=== PATIENT | male | born 1945 | race Caucasian/White ===

== ENCOUNTER 2019-03-16 18:00 | Inpatient (IN) | payer OTHER ==
[~2019-03-16] VITALS: Ht 170.2 cm; Wt 88.5 kg
[2019-03-16 18:17] VITALS: BP 144/93
--- NOTE | 2019-03-16 18:20 | NUR ---
PT TO WAIT IN ER LOBBY. VSS. [id number]
--- NOTE | 2019-03-16 21:35 | NUR ---
PT AMBULATED TO BED 03. RIGHT FOOT BANDAGED. PT NOTED TO BE LIMPING.
--- NOTE | 2019-03-16 22:01 | NUR ---
73 Y/O MALE BIB SELF C/O R FOOT INFECTION. WAS SEEN YESTERDAY, ADMITTED, AND WAS GIVEN IV ANTIBIOTICS. LEFT AMA. PMH- DENIES
[2019-03-16] MEDS ORDERED: cefTRIAXone 1,000 MG VIAL ONE (22:20)
[2019-03-16] MEDS ORDERED: MORPHINE SULFATE 2 MG/ML SYR IVP PRN (22:25)
[2019-03-16] MEDS ORDERED: FAMOTIDINE 20 MG/2 ML VIAL IV PRN (22:25)
[2019-03-16] MEDS ORDERED: HYDROcodone/APAP 7.5/325 MG 1 TAB PO PRN (22:25)
[2019-03-16] MEDS ORDERED: DOCUSATE SODIUM 100 MG GELCAP PO PRN (22:25)
[2019-03-16] MEDS ORDERED: LORazepam 2 MG/ML VIAL IM/IVP PRN (22:25)
[2019-03-16] MEDS ORDERED: ONDANSETRON 4 MG/2 ML VIAL IM/IVP PRN (22:25)
[2019-03-16] MEDS ORDERED: GLUCAGON 1 MG VIAL IVP PRN (22:55)
[2019-03-16] MEDS ORDERED: DEXTROSE 50% 50 ML SYR IVP PRN (22:55)
--- NOTE | 2019-03-16 23:20 | NUR ---
Patient will be admitted to care of . Admited to TELE. Will go to room 118. Belongings list completed. Report to YANI MORAN.
[2019-03-16 23:25] VITALS: BP 133/79
--- NOTE | 2019-03-16 23:25 | NUR ---
RECEIVED BEDSIDE REPORT FROM ED RN KIMBERLEY, FOR PT'S CONTINUITY OF CARE. PT ARRIVED VIA GURNEY, AMBULATED TO BED, ALERT, AWAKE, ORIENTED X 4, IS ON ROOM AIR, HAS RIGHT AC 20G SALINE LOCK IV, AND DENIES PAIN AT THIS TIME. PT ADMITTED FOR RIGHT GREAT TOE OSTEOMYELITIS AND CELLULITIS, PHOTOS TAKEN AND CHARTED, UNABLE TO MEASURE WOUND DT SIZE IRREGULARITY. ADMISSION ASSESSMENT AND PROTOCOL DONE. EXPLAINED TO PT TURRET PRESS OPERATOR ROUTINE, PT VERBALIZED UNDERSTANDING. BED IS ON LOW POSITION, SIDE RAILS ARE UP, AND CALL LIGHT IS WITHIN REACH. WILL MONITOR PT THROUGHOUT SHIFT.
[2019-03-16] MEDS ORDERED: LEVOFLOXACIN 750 MG/D5W PREMIX 150 ML IV SCH (23:30)
[2019-03-16] MEDS ORDERED: NACL 0.9% IRR 250 ML BOTTLE IR PRN (23:35)
[2019-03-16] MEDS ORDERED: GAUZE TP PRN (23:35)
[2019-03-17 00:15] LABS: BASOPHILS # (AUTO) 0.1 K/uL (0.00-0.22); BASOPHILS % (AUTO) 0.6 % (0.0-2.0); EOSINOPHILS % (AUTO) 0.1 % (0.0-4.0); HEMATOCRIT 36.7 % (36-52); HEMOGLOBIN 12.2 g/dL (12.0-18.0); MEAN CORPUSCULAR HEMOGLOBIN 28 pg (27-31); MEAN CORPUSCULAR HGB CONC 33 g/dL (33-37); MEAN CORPUSCULAR VOLUME 83.3 fL (80-94); MONOCYTES # (AUTO) 0.8 K/uL (0.8-1.0); MONOCYTES % (AUTO) 5.7 % (1.7-9.3); NEUTROPHILS # (AUTO) 11.4 K/uL (1.8-7.7); PLATELET COUNT (AUTO) 397 K/uL (140-450); RED CELL DISTRIBUTION WIDTH 13.8 % (11.6-13.7); WHITE BLOOD COUNT (AUTO) 14.4 K/uL (4.8-10.8)
[2019-03-17 00:15] LABS: APPEARANCE,URINE CLEAR (CLEAR); BILIRUBIN,URINE 1+ (NEGATIVE); BLOOD, URINE NEGATIVE (NEGATIVE); COLOR,URINE YELLOW (YELLOW); LEUKOCYTE ESTERASE ,URINE NEGATIVE (NEGATIVE); NITRITE, URINE NEGATIVE (NEGATIVE); UGLUCOSE NEGATIVE (NEGATIVE)
[2019-03-17 00:21] LABS: BARBITURATE, URINE NEG. ng/ml (NEG <=200); BENZODIAZEPINE, URINE NEG. ng/mL (NEG <=200); CANNABINOID, URINE NEG. ng/mL (NEG <=50); COCAINE, URINE NEG. ng/mL (NEG <=300); OPIATE, URINE NEG. ng/mL (NEG <=2000); PHENCYCLIDINE SCREEN,URINE NEG. ng/mL (NEG <=25)
[2019-03-17] MEDS: PIPERACILLIN/TAZOBACTAM 4.5 GM in DEXTROSE 5% 100 ML IV SCH ×4 (00:30→12:00)
[2019-03-17 00:34] LABS: RBC,URINE 0-5 /HPF (0-5); WBC,URINE 0-5 /HPF (0-5)
[2019-03-17 00:39] LABS: PROTHROMBIN TIME 10.3 secs (10.8-13.4)
[2019-03-17 00:48] LABS: NEUTROPHILS % (AUTO) 79.6 % (42.2-75.2)
[2019-03-17 00:50] LABS: ALBUMIN 2.3 g/dL (3.4-5.0); ANION GAP 15.7 (8-16); ASPARTATE AMINOTRANSFERASE 13 U/L (15-37); CHLORIDE 97 mmol/L (98-107); CREATININE 0.9 mg/dL (0.7-1.3); GLUCOSE 179 mg/dL (74-106); POTASSIUM 3.7 mmol/L (3.5-5.1); SODIUM SERUM 135 mmol/L (136-145); TOTAL BILIRUBIN 0.7 mg/dL (0.0-1.0); UREA NITROGEN, BLOOD 12 mg/dL (7-18)
[2019-03-17 00:54] LABS: ALBUMIN 2.3 g/dL (3.4-5.0); FREE T4 (FREE THYROXINE) 1.2 ng/dL (0.76-1.46); PHOSPHORUS 3.7 mg/dL (2.5-4.9); THYROID STIMULATING HORMONE 3.07 uIU/mL (0.34-3.74)
[2019-03-17] MEDS ORDERED: PIPERACILLIN/TAZOBACTAM 2.25 GM VIAL IV ONE ×2 (01:18→06:40)
--- NOTE | 2019-03-17 01:55 | NUR ---
ZOSYN 4 GRAMS NOT AVAILABLE IN HOUSE PER VICE ADMIRAL, ADMINISTERED TWO 2.25 GRAMS OF ZOSYN IN DEXTROSE 50ML. PT DENIES ANY REACTION FROM 1ST DOSE OF ZOSYN. WILL CONTINUE TO MONITOR PT.
[2019-03-17 04:00] VITALS: BP 141/78
[2019-03-17] MEDS: DEXT 5% /NACL 0.9% 1,000 ML IV SCH ×3 (04:08→16:30)
--- NOTE | 2019-03-17 04:10 | NUR ---
HUNG DEXTROSE 5% NS INFUSING AT 100 ML/HR ORDERED. PT ASLEEP, WITH NO SIGNS OF DISTRESS. WILL CONTINUE TO MONITOR PT.
[2019-03-17] MEDS ORDERED: PIPERACILLIN/TAZOBACTAM 4.5 GM in DEXTROSE 5% 100 ML IV SCH (05:00)
[2019-03-17] MEDS: BLOOD GLUCOSE MONITORING 1 DEV DEV FS SCH ×4 (06:10→21:31)
[2019-03-17] MEDS: INSULIN LISPRO SLIDING SCALE 100 UNITS/ML VIAL SUBQ PRN ×4 (06:12→21:31)
--- NOTE | 2019-03-17 06:12 | NUR ---
BLOOD GLUCOSE CHECKED AND CHARTED. ADMINISTERED SUBQ INSULIN PER SLIDING SCALE ORDERED. PT EDUCATION GIVEN, PT VERBALIZED UNDERSTANDING. PT TOLERATED MEDICATION WELL.
--- NOTE | 2019-03-17 07:15 | NUR ---
ADMINISTERED IV ABX ORDERED. PT TOLERATED MEDICATIONS WELL. WILL ENDORSE TO AM SHIFT RN FOR CONTINUITY OF CARE.
--- NOTE | 2019-03-17 07:16 | NUR ---
RECEIVED BEDSIDE REPORT FROM INSPECTOR PLUMBING NURSE FOR CONTINUITY OF CARE. PATIENT ABLE TO AMBULATE FROM BED TO BATHROOM, ALERT, AWAKE, ORIENTED X 4, IS ON ROOM AIR, RESPIRATIONS EVEN AND UNLABORED. HAS RIGHT AC 20G INTACT, ASYMPTOMATIC, INFUSING IV ANTIBIOTICS, PATIENT TOLERATING IT WELL. NO COMPLAINTS AT THIS TIME. UPDATED BOARD. VERBALIZED PLAN OF CARE TO PATIENT, HE VERBALIZED UNDERSTANDING. SAFETY PRECAUTIONS IN PLACE, CALL LIGHT WITHIN REACH, WILL CONTINUE TO MONITOR PATIENT.
[2019-03-17 08:00] VITALS: BP 136/71
[2019-03-17] MEDS ORDERED: SODIUM BICARBONATE 4.2% 5 MEQ/10 ML SYR IV SCH (08:10)
[2019-03-17 08:20] LABS: ANION GAP 15.3 (8-16); CARBON DIOXIDE 24.4 mmol/L (21-32); CHLORIDE 98 mmol/L (98-107); CREATININE 0.9 mg/dL (0.7-1.3); GLUCOSE 216 mg/dL (74-106); POTASSIUM 3.7 mmol/L (3.5-5.1); SODIUM SERUM 134 mmol/L (136-145); UREA NITROGEN, BLOOD 13 mg/dL (7-18)
[2019-03-17] MEDS: LISINOPRIL 5 MG TAB PO SCH (08:45)
--- NOTE | 2019-03-17 08:45 | NUR ---
ORDERED MEDICATIONS GIVEN. PATIENT TOLERATING IT WELL. NO COMPLAINTS AT THIS TIME. SAFETY PRECAUTIONS IN PLACE, CALL LIGHT WITHIN REACH, WILL CONTINUE TO MONITOR PATIENT.
[2019-03-17 08:59] LABS: BASOPHILS % (AUTO) 0.4 % (0.0-2.0); EOSINOPHILS % (AUTO) 0.2 % (0.0-4.0); LYMPHOCYTES # (AUTO) 1.7 K/uL (2.0-11.5); LYMPHOCYTES % (AUTO) 12.8 % (20.5-51.1); MEAN CORPUSCULAR HEMOGLOBIN 28 pg (27-31); MEAN CORPUSCULAR HGB CONC 34 g/dL (33-37); MEAN CORPUSCULAR VOLUME 83.1 fL (80-94); MONOCYTES % (AUTO) 7.5 % (1.7-9.3); NEUTROPHILS # (AUTO) 10.2 K/uL (1.8-7.7); NEUTROPHILS % (AUTO) 79.1 % (42.2-75.2); PLATELET COUNT (AUTO) 391 K/uL (140-450); RED BLOOD CELL COUNT(AUTO) 4.22 MIL/uL (4.20-6.10); WHITE BLOOD COUNT (AUTO) 12.9 K/uL (4.8-10.8)
--- NOTE | 2019-03-17 10:10 | NUR ---
PATIENT RESTING IN BED WITH EYES CLOSED, RESPIRATIONS EVEN AND UNLABORED ON ROOM AIR. WILL CONTINUE TO MONITOR PATIENT.
[2019-03-17 12:00] VITALS: BP 136/70
[2019-03-17] MEDS: NON ADHERENT DRESSING TP SCH (12:07)
--- NOTE | 2019-03-17 12:07 | NUR ---
BLOOD SUGAR 189, COVERAGE GIVEN. ORDERED IVPB ANTIBIOTICS GIVEN. PATIENT TOLERATED IT WELL. PODIATRY IN TO SEE THE PATIENT, DOING ASSESSMENT AND DRESSING CHANGE. WILL WAIT FOR NEW ORDERS. CALL LIGHT WITHIN REACH, WILL CONTINUE TO MONITOR PATIENT.
--- NOTE | 2019-03-17 12:46 | NUR ---
DAUGHTER KRISTINE CALLED. UPDATED HER ON PATIENT'S CONDITION AND STATUS, THEN TRANSFERRED TO PATIENT'S ROOM PHONE. NO COMPLAINTS AT THIS TIME. WILL CONTINUE TO MONITOR PATIENT.
[2019-03-17] MEDS ORDERED: VANCOMYCIN 500 MG in DEXTROSE 5% 100 ML IV SCH (12:50)
[2019-03-17] MEDS ORDERED: VANCOMYCIN PER PHARMACY MC PRN (12:50)
--- NOTE | 2019-03-17 13:16 | NUR ---
CONSENT FOR RIGHT FOOT SURGERY SIGNED. PATIENT'S LUNCH AT BEDSIDE. NO COMPLAINTS AT THIS TIME. WILL CONTINUE TO MONITOR PATIENT.
--- NOTE | 2019-03-17 14:11 | NUR ---
PATIENT HAS BEEN SCREENED AND CATEGORIZED HIGH NUTRITION RISK. PATIENT WILL BE SEEN WITHIN 1-2 DAYS OF ADMISSION. 03/17/19 - 03/18/19 DELIO BAUMAN MBA, RD
--- NOTE | 2019-03-17 14:25 | NUR ---
DR ALCARAZ CALLED. PATIENT'S PROCEDURE WILL BE TODAY AT 1700. PATIENT TO BE KEPT NPO UNTIL THEN, RN TO CHECK IF EKG AND CHEST XRAY DONE. PER MEDICAL RECORDS, EKG AND CHEST XRAY DONE. PATIENT NOW AWARE AND AGREEABLE WITH PLAN. NO COMPLAINTS AT THIS TIME. WILL CONTINUE TO MONITOR PATIENT.
--- NOTE | 2019-03-17 15:24 | NUR ---
PHARMACIST CALLED TO CLARIFY VANCOMYCIN ANTIBIOTIC ORDER. CALLED DR. ALCARAZ TO CLARIFY ORDERS. HE CALLED BACK. PER DR. ALCARAZ, PATIENT WILL HAVE PROCEDURE AT 1700 SO HOLD ALL ANTIBIOTICS AT THIS TIME. ANTIBIOTICS MAY BE RESUMED AFTER PROCEDURE. RN CALLED PHARMACIST TO RELAY DR. ALCARAZ'S MESSAGE. PHARMACIST VERBALIZED UNDERSTANDING. PATIENT HAS NO COMPLAINTS AT THIS TIME. WILL CONTINUE TO MONITOR PATIENT.
[2019-03-17] MEDS: ACETAMINOPHEN 325 MG TAB PO PRN (15:33)
--- NOTE | 2019-03-17 15:33 | NUR ---
ORAL TEMP 100.5. PRN TYLENOL GIVEN. PATIENT TOLERATED IT WELL. COOLING MEASURES IN PLACE, NO COMPLAINTS AT THIS TIME. CALL LIGHT WITHIN REACH, WILL CONTINUE TO MONITOR PATIENT.
[2019-03-17 16:00] VITALS: BP 120/68
--- NOTE | 2019-03-17 17:05 | NUR ---
ORAL TEMP. 99.0. DR. ALCARAZ AND DR. RIZZO IN TO SPEAK WITH PATIENT ABOUT PROCEDURE. PATIENT VERBALIZED UNDERSTANDING AND WILL BE GOING TO PROCEDURE.
--- NOTE | 2019-03-17 17:15 | NUR ---
03/17/19 RD INITIAL ASSESSMENT COMPLETED PLEASE REFER TO NUTRITION ASSESSMENT UNDER CARE ACTIVITY FOR ESTIMATED NUTRITIONAL NEEDS. RD RECOMMENDATIONS: 1. WHEN MEDICALLY CLEARED, RESUME PO DIET 60G CCHO 2. EDUCATE PT ON DIET, WHEN F/U (PT NOW IN PROCEDURE) 3. F/U 3-5 DAYS; MODERATE RISK DELIO BAUMAN MBA, RD
--- NOTE | 2019-03-17 17:20 | NUR ---
PATIENT WHEELED OFF FLOOR TO PROCEDURE WITH DR. ALCARAZ WITH COBOL APPLICATION DEVELOPERYANI MORRIS. PATIENT IN STABLE CONDITION.
[2019-03-17] MEDS ORDERED: DESFLURANE 240 ML BTL INH ONE (17:50)
[2019-03-17] MEDS ORDERED: fentaNYL 0.05 MG/ML VIAL ONE (17:50)
[2019-03-17] MEDS ORDERED: ONDANSETRON 4 MG/2 ML VIAL ONE (17:50)
[2019-03-17] MEDS ORDERED: PROPOFOL 200 MG/20 ML VIAL IV ONE (17:50)
[2019-03-17] MEDS ORDERED: SUCCINYLCHOLINE CHLORIDE 200 MG/10 ML VIAL IVP ONE (17:50)
[2019-03-17] MEDS ORDERED: KETOROLAC 30 MG/ML VIAL ONE (17:50)
--- NOTE | 2019-03-17 18:00 | NUR ---
1800 IV ANTIBIOTICS NOT GIVEN AT THIS TIME. PATIENT OFF FLOOR FOR PROCEDURE WITH DR. ALCARAZ.
--- NOTE | 2019-03-17 19:00 | NUR ---
1900 IV ANTIBIOTICS NOT GIVEN, PATIENT STILL NOT BACK FROM PROCEDURE. WILL ENDORSE 1800 AND 1900 ANTIBIOTICS TO SAND PLANT ATTENDANT NURSE.
--- NOTE | 2019-03-17 19:00 | NUR ---
REPORT GIVEN TO BRICK MASON NURSE. PATIENT CURRENTLY IN PROCEDURE WITH DR. ALCARAZ.
--- NOTE | 2019-03-17 19:10 | NUR ---
RECEIVED REPORT FROM AM SHIFT RN EDER, FOR PT'S CONTINUITY OF CARE. PT IS CURRENTLY STILL IN SURGERY. PER EDER, SURGERY RN CALLED TO INFORM THAT PT WILL BE IN OR FOR A WHILE. WILL INITIATE AND IMPLEMENT POST OP PROTOCOL UPON RETURN.
[2019-03-17] MEDS ORDERED: HYDROGEN PEROXIDE 3% 240 ML BTL TP ONE (19:50)
[2019-03-17 20:00] VITALS: BP 117/67
[2019-03-17] MEDS ORDERED: ONDANSETRON 4 MG/2 ML VIAL IVP PRN (20:00)
[2019-03-17] MEDS ORDERED: HYDROmorphone 1 MG/ML AMP IVP PRN (20:00)
--- NOTE | 2019-03-17 20:30 | NUR ---
RECEIVED REPORT FROM POST OP RN ARTURO, FOR PT'S CONTINUITY OF CARE. PT IS S/P AWAKE, ALERT, ORIENTED X 4, DENIES PAIN AT THIS TIME. WILL INITIATE POST OP VITAL SIGNS CHECK PROTOCOL. WILL CARRY OUT MD ORDERS. WILL CONTINUE TO MONITOR PT.
[2019-03-17] MEDS ORDERED: BLOOD GLUCOSE MONITORING 1 DEV DEV FS SCH (21:00)
[2019-03-17 21:03] LABS: BASOPHILS % (AUTO) 0.3 % (0.0-2.0); EOSINOPHILS % (AUTO) 0.3 % (0.0-4.0); HEMATOCRIT 30.7 % (36-52); HEMOGLOBIN 10.5 g/dL (12.0-18.0); LYMPHOCYTES % (AUTO) 16.3 % (20.5-51.1); MEAN CORPUSCULAR HEMOGLOBIN 28 pg (27-31); MEAN CORPUSCULAR HGB CONC 34 g/dL (33-37); MONOCYTES # (AUTO) 0.8 K/uL (0.8-1.0); MONOCYTES % (AUTO) 6.1 % (1.7-9.3); NEUTROPHILS # (AUTO) 9.6 K/uL (1.8-7.7); PLATELET COUNT (AUTO) 347 K/uL (140-450); RED CELL DISTRIBUTION WIDTH 13.7 % (11.6-13.7); WHITE BLOOD COUNT (AUTO) 12.5 K/uL (4.8-10.8)
[2019-03-17] MEDS: ATORVASTATIN 20 MG TAB PO SCH (21:15)
--- NOTE | 2019-03-17 21:31 | NUR ---
ADMINISTERED SCHEDULED MEDIATIONS ORDERED. PT TOLERATED THEM WELL. PT DENIES ANY PAIN AT THIS TIME. FAMILY MEMBERS AT BEDSIDE. PT TEACHING GIVEN, AND VERBALIZED UNDERSTANDING. WILL CONTINUE TO MONITOR PT.
[2019-03-17] MEDS ORDERED: cefTRIAXone 2,000 MG in DEXTROSE 5% 100 ML IV SCH (22:00)
[2019-03-17] MEDS: VANCOMYCIN 1,000 MG in DEXTROSE 5% 250 ML IV SCH (22:20)
--- NOTE | 2019-03-17 22:20 | NUR ---
STARTED IV VANCOMYCIN ORDERED, NOT GIVEN AT 1800 DT PT IN SX. PER PHARMACY, DOSE TIME ADJUSTMENT IS NOT NEEDED. PT DENIES PAIN, AND VITAL SIGNS ARE STABLE. WILL CONTINUE TO MONITOR PT.
[2019-03-18] VITALS: BP 113/53
--- NOTE | 2019-03-18 | NUR ---
VITAL SIGNS CHECKED AND CHARTED. PT LYING DOWN, ASLEEP, WITH NO SIGNS OF DISTRESS. INFORMED PT RE: ANOTHER IV ABX ADMINISTRATION AFTER CURRENT ONE IS DONE. PT VERBALIZED UNDERSTANDING. WILL CONTINUE TO MONITOR PT.
[2019-03-18] MEDS: PIPERACILLIN/TAZOBACTAM 4.5 GM in DEXTROSE 5% 100 ML IV SCH ×4 (00:30→18:12)
--- NOTE | 2019-03-18 00:30 | NUR ---
ADMINISTERED IV ABX ORDERED. GIVEN AT THIS TIME DT PT WAS IN SX. PT ASLEEP, WITH NO SIGNS OF DISTRESS. WILL CONTINUE TO MONITOR PT.
--- NOTE | 2019-03-18 02:45 | NUR ---
MADE ROUNDS. PT WOKE UP ASKING FOR ASSISTANCE TO THE BATHROOM. GAVE PT TEACHING RE: NON WT BEARING ORDER BY MD FOR RIGHT FOOT, INSTRUCTED PT TO USE URINAL INSTEAD, PT AGREED AND TOLERATED ACTIVITY WELL. WILL CONTINUE TO MONITOR PT.
[2019-03-18] MEDS ORDERED: DEXT 5% /NACL 0.9% 1,000 ML IV SCH (03:30)
[2019-03-18 04:00] VITALS: BP 127/63
--- NOTE | 2019-03-18 04:00 | NUR ---
VITAL SIGNS CHECKED AND CHARTED. PT WOKE UP, DENIES ANY PAIN OR DISCOMFORT AT THIS TIME. WILL CONTINUE TO MONITOR PT.
[2019-03-18] MEDS: BLOOD GLUCOSE MONITORING 1 DEV DEV FS SCH ×4 (06:02→20:31)
[2019-03-18] MEDS: INSULIN LISPRO SLIDING SCALE 100 UNITS/ML VIAL SUBQ PRN ×3 (06:04→20:49)
[2019-03-18] MEDS: VANCOMYCIN 1,000 MG in DEXTROSE 5% 250 ML IV SCH ×2 (06:05→18:49)
--- NOTE | 2019-03-18 06:11 | NUR ---
ADMINISTERED IV ABX ORDERED. BLOOD GLUCOSE CHECKED AND CHARTED. ADMINISTERED INSULIN ORDERED PER SLIDING SCALE. WILL CONTINUE TO MONITOR PT.
--- NOTE | 2019-03-18 07:17 | NUR ---
ENDORSED PT TO AM SHIFT RN FOR CONTINUITY OF CARE. IV ABX STILL INFUSING. PT IS IN STABLE CONDITION, NO SIGNS OF DISTRESS. LAB PERSONNEL IS AT BEDSIDE FOR AM LAB DRAW. CALL LIGHT IS WITHIN REACH, AND SIDE RAILS ARE UP.
--- NOTE | 2019-03-18 07:18 | NUR ---
RECEIVED REPORT FROM NETWORK APPLICATIONS SPECIALIST NURSE FOR CONTINUITY OF CARE. PT IN STABLE CONDITION. RESPIRATIONS EVEN AND UNLABORED, ROOM AIR. IV INTACT AND PATENT. SAFETY MEASURES IN PLACE. CALL LIGHT AT BEDSIDE. BED IN LOW POSITION. BED ALARM ON. WILL CONTINUE TO MONITOR.
[2019-03-18 08:00] VITALS: BP 123/61
[2019-03-18 08:40] LABS: MAGNESIUM 1.9 mg/dL (1.8-2.4); PHOSPHORUS 3.3 mg/dL (2.5-4.9)
[2019-03-18 09:33] LABS: ANION GAP 14.1 (8-16); CARBON DIOXIDE 24.5 mmol/L (21-32); CHLORIDE 100 mmol/L (98-107); CREATININE 0.8 mg/dL (0.7-1.3); GLUCOSE 228 mg/dL (74-106); POTASSIUM 3.6 mmol/L (3.5-5.1); SODIUM SERUM 135 mmol/L (136-145); UREA NITROGEN, BLOOD 12 mg/dL (7-18)
--- NOTE | 2019-03-18 09:33 | NUR ---
PT LYING IN BED IN STABLE CONDITION. GAVE WIPES PER PT REQUEST FOR CLEANING AFTER URINATING IN URINAL. CALL LIGHT AT BEDSIDE. BED IN LOW POSITION. BED ALARM ON. WILL CONTINUE TO MONITOR.
[2019-03-18] MEDS: LISINOPRIL 5 MG TAB PO SCH (09:58)
[2019-03-18] MEDS: ASPIRIN 81 MG TAB.CHEW PO SCH (09:58)
--- NOTE | 2019-03-18 11:00 | NUR ---
PT TALKING TO FAMILY AT BEDSIDE. RESPIRATIONS EVEN AND UNLABORED. CALL LIGHT AT BEDSIDE. BED IN LOW POSITION. BED ALARM ON. WILL CONTINUE TO MONITOR.
[2019-03-18 11:50] LABS: BASOPHILS % (AUTO) 0.2 % (0.0-2.0); EOSINOPHILS % (AUTO) 0.5 % (0.0-4.0); HEMATOCRIT 30.6 % (36-52); HEMOGLOBIN 10.3 g/dL (12.0-18.0); LYMPHOCYTES # (AUTO) 1.2 K/uL (2.0-11.5); LYMPHOCYTES % (AUTO) 11.4 % (20.5-51.1); MEAN CORPUSCULAR HEMOGLOBIN 28 pg (27-31); MEAN CORPUSCULAR HGB CONC 34 g/dL (33-37); MEAN CORPUSCULAR VOLUME 83.3 fL (80-94); MONOCYTES # (AUTO) 0.7 K/uL (0.8-1.0); MONOCYTES % (AUTO) 6.6 % (1.7-9.3); NEUTROPHILS # (AUTO) 8.5 K/uL (1.8-7.7); NEUTROPHILS % (AUTO) 81.3 % (42.2-75.2); PLATELET COUNT (AUTO) 376 K/uL (140-450); RED BLOOD CELL COUNT(AUTO) 3.67 MIL/uL (4.20-6.10); RED CELL DISTRIBUTION WIDTH 13.7 % (11.6-13.7); WHITE BLOOD COUNT (AUTO) 10.5 K/uL (4.8-10.8)
[2019-03-18 12:00] VITALS: BP 136/65
[2019-03-18] MEDS: NON ADHERENT DRESSING TP SCH (12:36)
--- NOTE | 2019-03-18 13:15 | NUR ---
PT LYING IN BED TALKING TO FAMILY EATING LUNCH. RESPIRATIONS EVEN AND UNLABORED. BED IN LOW POSITION. BED ALARM ON. CALL LIGHT AT BEDSIDE.
--- NOTE | 2019-03-18 14:30 | NUR ---
DR. FORTE CHANGED PT WOUND DRESSING. PT TOLERATED WELL. WILL CONTINUE TO MONITOR.
[2019-03-18] MEDS ORDERED: VANCOMYCIN PER PHARMACY MC PRN (15:35)
--- NOTE | 2019-03-18 15:36 | NUR ---
EMPTIED URINAL 550ML AT THIS TIME. GAVE CLEAN CLOTH PER PT REQUEST. BED IN LOW POSITION. BED ALARM ON. CALL LIGHT AT BEDSIDE.
[2019-03-18 16:00] VITALS: BP 128/71
[2019-03-18] MEDS: NACL 0.9% 1,000 ML IV SCH (16:17)
--- NOTE | 2019-03-18 17:00 | NUR ---
GAVE REPORT TO DAY SHIFT NURSE JAMES FOR CONTINUITY OF CARE. PT IN STABLE CONDITION.
--- NOTE | 2019-03-18 17:01 | NUR ---
RECEIVED HAND OFF REPORT FROM TRICIA LOMELI WILL CONTINUE WITH CARE.
[2019-03-18] MEDS: ACETAMINOPHEN 325 MG TAB PO PRN (17:57)
--- NOTE | 2019-03-18 17:59 | NUR ---
ADMINISTERED TYLENOL PT HAD FEVER TEMP 101.4. PATIENT HAS ICEPACKS IN PLACE. DR. DHALIWAL IS AWARE. PT FAMILY IS AT BEDSIDE
--- NOTE | 2019-03-18 18:00 | NUR ---
ERVIN SNYDER WAITING FOR IT TO FINISH THEN WILL HANG QUINTON
--- NOTE | 2019-03-18 19:31 | NUR ---
ENDORSED PT TO PM RN PT STABLE AND IN NO APPARENT DISTRESS. QUINTON RUNNING ZOSYN FINISHED. TEMP CHECKED 99.8 AFTER TYLENOL
--- NOTE | 2019-03-18 19:56 | NUR ---
RECEIVED BEDSIDE REPORT FROM DAY SHIFT NURSE. PATIENT IS AWAKE, ALERT, AND COOPERATIVE. RESPIRATION EVEN UNLABORED ON ROOM AIR. NO DISTRESS NOTED. SKIN IS WARM AND DRY. S/P FOR RIGHT FOOT TRANSMETATARSAL AMPUTATION. DENIES PAIN. DRESSING DRY, INTACT, AND CLEAN. PLAN OF CARE WAS DISCUSSED. ALL SAFETY MEASURES IN PLACE. BED IS AT LOW POSITION. FAMILY AT BEDSIDE. CALL LIGHT WITHIN REACH AND VERBALIZES ITS USE. WILL CONTINUE TO MONITOR.
--- NOTE | 2019-03-18 20:00 | NUR ---
INITIAL ASSESSMENT DONE. VITALS WERE TAKEN. PATIENT IN STABLE CONDITION. AFEBRILE. TEMP 99.3. WILL CONTINUE TO MONITOR.
[2019-03-18] MEDS: ATORVASTATIN 20 MG TAB PO SCH (20:25)
--- NOTE | 2019-03-18 21:00 | NUR ---
ALL SCHEDULED MEDS WERE GIVEN PER ORDER. NO ASE NOTED. DENIES PAIN. CALL LIGHT WITHIN REACH. WILL CONTINUE TO MONITOR.
--- NOTE | 2019-03-18 22:30 | NUR ---
PATIENT IN BED SLEEPING RESPIRATION EVEN UNLABORED ON ROOM AIR. NO DISTRESS NOTED. CALL LIGHT WITHIN REACH. WILL CONTINUE TO MONITOR.
[2019-03-19] VITALS: BP 116/53
--- NOTE | 2019-03-19 | NUR ---
VITALS WERE TAKEN. PATIENT IN STABLE CONDITION. NO DISTRESS NOTED. WILL CONTINUE TO MONITOR.
[2019-03-19] MEDS: PIPERACILLIN/TAZOBACTAM 4.5 GM in DEXTROSE 5% 100 ML IV SCH ×4 (00:28→19:55)
--- NOTE | 2019-03-19 01:00 | NUR ---
DRESSING CHANGED THIS MORNING BY DR. FORTE. DRESSING DRY, INTACT, AND CLEAN. WILL CONTINUE TO MONITOR.
--- NOTE | 2019-03-19 02:00 | NUR ---
CHECKED PATIENT. PATIENT SLEEPING RESPIRATION EVEN UNLABORED ON ROOM AIR. NO DISTRESS NOTED. WILL CONTINUE TO MONITOR.
--- NOTE | 2019-03-19 04:00 | NUR ---
CHECKED PATIENT. PATIENT SLEEPING RESPIRATION EVEN UNLABORED ON ROOM AIR. NO DISTRESS NOTED. CALL LIGHT WITHIN REACH. WILL CONTINUE TO MONITOR.
--- NOTE | 2019-03-19 05:31 | NUR ---
PATIENT WOKE UP ASKED FOR WATER. WATER GIVEN. WILL CONTINUE TO MONITOR.
[2019-03-19] MEDS: VANCOMYCIN 1,000 MG in DEXTROSE 5% 250 ML IV SCH (06:03)
[2019-03-19 06:31] LABS: ANION GAP 11.5 (8-16); CARBON DIOXIDE 25.7 mmol/L (21-32); CHLORIDE 102 mmol/L (98-107); CREATININE 0.8 mg/dL (0.7-1.3); GLUCOSE 125 mg/dL (74-106); POTASSIUM 3.2 mmol/L (3.5-5.1); SODIUM SERUM 136 mmol/L (136-145); UREA NITROGEN, BLOOD 6 mg/dL (7-18)
[2019-03-19] MEDS: BLOOD GLUCOSE MONITORING 1 DEV DEV FS SCH ×4 (06:35→20:41)
[2019-03-19 06:41] LABS: MAGNESIUM 1.7 mg/dL (1.8-2.4); PHOSPHORUS 3.2 mg/dL (2.5-4.9)
--- NOTE | 2019-03-19 07:19 | NUR ---
ENDORSED PATIENT TO DAY SHIFT NURSE. PATIENT IN STABLE CONDITION.
[2019-03-19 08:30] LABS: BASOPHILS # (AUTO) 0.1 K/uL (0.00-0.22); BASOPHILS % (AUTO) 0.5 % (0.0-2.0); EOSINOPHILS # (AUTO) 0.1 K/uL (0-0.4); EOSINOPHILS % (AUTO) 0.7 % (0.0-4.0); HEMATOCRIT 28.3 % (36-52); HEMOGLOBIN 9.7 g/dL (12.0-18.0); LYMPHOCYTES # (AUTO) 2.1 K/uL (2.0-11.5); LYMPHOCYTES % (AUTO) 20.4 % (20.5-51.1); MEAN CORPUSCULAR HEMOGLOBIN 29 pg (27-31); MEAN CORPUSCULAR HGB CONC 34 g/dL (33-37); MEAN CORPUSCULAR VOLUME 82.8 fL (80-94); MONOCYTES # (AUTO) 0.8 K/uL (0.8-1.0); MONOCYTES % (AUTO) 8.1 % (1.7-9.3); NEUTROPHILS # (AUTO) 7.2 K/uL (1.8-7.7); NEUTROPHILS % (AUTO) 70.3 % (42.2-75.2); PLATELET COUNT (AUTO) 393 K/uL (140-450); RED BLOOD CELL COUNT(AUTO) 3.42 MIL/uL (4.20-6.10); RED CELL DISTRIBUTION WIDTH 13.9 % (11.6-13.7); WHITE BLOOD COUNT (AUTO) 10.2 K/uL (4.8-10.8)
[2019-03-19] MEDS: ASPIRIN 81 MG TAB.CHEW PO SCH (08:37)
[2019-03-19] MEDS: LISINOPRIL 5 MG TAB PO SCH (08:37)
[2019-03-19 08:52] VITALS: BP 121/80
--- NOTE | 2019-03-19 08:57 | NUR ---
RECEIVED BED SIDE REPORT FROM COST AND RISK ANALYSIS MANAGER RN. PT A/O X4, PT S/P TMA OF RIGHT FOOT, JOHN BANDAGE PLACED, NO DRAINAGE NOTED. PT DENIES ANY PAIN. VS STABLE, NO FEVER NOTED,ON RA IN NO RESP DISTRESS. RIGHT AC 20G RUNNING NS 50CC/HR. FAMILY AT BEDSIDE. EDUCATED PT AND FAMILY ON STRICT NON-WEIGHTBEARING ON RIGHT FOOD. PT AND FAMILY VERBALIZED UNDERSTANDING. GAVE AM MEDS, PT TOOK WITH NO PROBLEM. TOLERATING DIET WELL, WILL CONTINUE TO MONITOR.
--- NOTE | 2019-03-19 08:59 | NUR ---
WOUND CARE EVALUATION NOT DONE,PT. SEEN AND TREATED BY DR. RIZZO ON 03/18/2019, WITH F/U IN HOUSE.
--- NOTE | 2019-03-19 09:45 | NUR ---
PT HAD A BM. PLACED PT UNDER BEDPAN. EDUCATED PT ON THE IMPORTANCE OF NON-WEIGHTBEARING ON RIGHT FOOT. WILL CONTINUE TO MONITOR.
--- NOTE | 2019-03-19 10:27 | NUR ---
Spoke to Dr. Boswell and to clarify treatment order, per Dr. Boswell that " the pt. will be under his care, no dressing change from nursing." Dr. Padilla notify,primary RN and pt. notify.
[2019-03-19] MEDS: NACL 0.9% 1,000 ML IV SCH (12:26)
--- NOTE | 2019-03-19 12:36 | NUR ---
ERVIN ESPARZA. FAMILY MEMBERS AT BEDSIDE. SUGAR 114, NO INSULIN COVERAGE. PT STABLE AT THIS TIME.
[2019-03-19] MEDS: NON ADHERENT DRESSING TP SCH (13:00)
[2019-03-19] MEDS ORDERED: LACTOBACILLUS RHAMNOSUS GG 1 EACH CAP PO SCH (13:49)
[2019-03-19] MEDS: VANCOMYCIN HCL 750 MG in DEXTROSE 5% 250 ML IV SCH ×2 (14:01→22:27)
[2019-03-19] MEDS ORDERED: POTASSIUM CHLORIDE 40 MEQ, LIDOCAINE MPF 1% - 5 mL VIAL 25 MG in NACL 0.9% 250 ML IV SCH (14:30)
[2019-03-19] MEDS: metFORMIN 850 MG TAB PO SCH (15:53)
[2019-03-19] MEDS: GABAPENTIN 300 MG CAP PO SCH (16:05)
[2019-03-19 16:45] VITALS: BP 125/62
--- NOTE | 2019-03-19 17:04 | NUR ---
Dry Plasterer Helper Note: Market Director Chelsy and I met with patient's son Dawit Brar Jr . He stated patient and him are agreeable with discharge plan to snf (local snf, [facility]). Dawit Aponte. lives in [place]. Dawit Aponte has been speaking with resident MD regarding patient's current medical condition. He does not have any questions nor concerns at this time. Dry Plasterer Helper and/or Market Director will follow up as needed.
[2019-03-19] MEDS: INSULIN LISPRO SLIDING SCALE 100 UNITS/ML VIAL SUBQ PRN (17:54)
--- NOTE | 2019-03-19 17:55 | NUR ---
CALLED PHARMACIST TO SEE IF POTASSIUM CHLORIDE CAN RUN WITH ZOSYN IN A SEPARATE LINE. DICKSON SAID IT IS BETTER TO HAVE POTASSIUM CHLORIDE RUN FIRST THEN ZOSYN. ZOSYN DUE AT 1900. POTASSIUM CHLORIDE STILL HAS ANOTHER 1 HOUR AND 47 MINUTES.
--- NOTE | 2019-03-19 19:11 | NUR ---
GAVE BEDSIDE REPORT TO BLIND ESCORT RN. PT STABLE.
--- NOTE | 2019-03-19 19:20 | NUR ---
RECEIVED BEDSIDE REPORT FROM DAY SHIFT NURSE. PATIENT IS AWAKE, ALERT, AND COOPERATIVE. RESPIRATION EVEN UNLABORED ON ROOM AIR. NO DISTRESS NOTED. SKIN IS WARM AND DRY. DENIES PAIN. PLAN OF CARE WAS DISCUSSED. ALL SAFETY MEASURES IN PLACE. BED IS AT LOW POSITION. CALL LIGHT WITHIN REACH AND VERBALIZES ITS USE. WILL CONTINUE TO MONITOR.
--- NOTE | 2019-03-19 20:00 | NUR ---
INITIAL ASSESSMENT DONE. VITALS WERE TAKEN. INSTRUCT PATIENT TO BE STRICTLY NON-WEIGHTBEARING UNTIL CLEARED BY PODIATRY. CALL LIGHT WITHIN REACH. WILL CONTINUE TO MONITOR.
[2019-03-19] MEDS: ATORVASTATIN 20 MG TAB PO SCH (20:40)
--- NOTE | 2019-03-19 21:00 | NUR ---
ALL SCHEDULED MEDS WERE GIVEN. NO ASE NOTED. CALL LIGHT WITHIN REACH. WILL CONTINUE TO MONITOR.
--- NOTE | 2019-03-19 22:40 | NUR ---
CHECKED PATIENT. PATIENT IN BED WATCHING TV RESPIRATION EVEN UNLABORED ON ROOM AIR. NO DISTRESS NOTED. CALL LIGHT WITHIN REACH. WILL CONTINUE TO MONITOR.
[2019-03-20] VITALS: BP 111/57
--- NOTE | 2019-03-20 | NUR ---
VITALS WERE TAKEN. PATIENT IN STABLE CONDITION. NO DISTRESS NOTED. DENIES PAIN. CALL LIGHT WITHIN REACH. WILL CONTINUE TO MONITOR.
[2019-03-20] MEDS: PIPERACILLIN/TAZOBACTAM 4.5 GM in DEXTROSE 5% 100 ML IV SCH ×4 (00:22→17:05)
--- NOTE | 2019-03-20 01:00 | NUR ---
DRESSING INTACT, DRY, AND CLEAN. PER PODIATRY NO NURSING WOUND CARE TO BE DONE. DR. WILLIS TO DO DRESSING CHANGE. PHOTO STILL NEED TO BE TAKEN.
--- NOTE | 2019-03-20 01:57 | NUR ---
CHECKED PATIENT. PATIENT SLEEPING RESPIRATION EVEN UNLABORED ON ROOM AIR. NO DISTRESS NOTED. CALL LIGHT WITHIN REACH. WILL CONTINUE TO MONITOR.
--- NOTE | 2019-03-20 04:00 | NUR ---
PATIENT SLEEPING RESPIRATION EVEN UNLABORED ON ROOM AIR. NO DISTRESS NOTED. CALL LIGHT WITHIN REACH. WILL CONTINUE TO MONITOR.
[2019-03-20] MEDS: VANCOMYCIN HCL 750 MG in DEXTROSE 5% 250 ML IV SCH ×3 (06:27→23:22)
[2019-03-20] MEDS: BLOOD GLUCOSE MONITORING 1 DEV DEV FS SCH ×4 (06:27→21:01)
--- NOTE | 2019-03-20 06:27 | NUR ---
RECEIVED BED SIDE REPORT FROM ENTERPRISE SERVICES MANAGER RN. PT A/O X4, RIGHT FOOT STILL HAS JOHN BANDAGE WRAPPED NO DRAINAGE NOTED FROM THE OUTSIDE. FOOT ELEVATED ON A PILLOW AND AWAY FROM FOOT OF HOSPITAL BED. SKIN INTACT, RIGHT AC 20G RUNNING NS AT 50CC/HR. WILL CONTINUE TO MONITOR.
--- NOTE | 2019-03-20 07:08 | NUR ---
ENDORSED PATIENT TO DAY SHIFT NURSE. PATIENT IN STABLE CONDITION.
[2019-03-20] MEDS: NACL 0.9% 1,000 ML IV SCH (07:35)
--- NOTE | 2019-03-20 07:37 | NUR ---
Late entry. Confirmed with RN that Rocephin IVPB completed at 2315.
[2019-03-20 07:38] VITALS: BP 129/68
[2019-03-20] MEDS: LISINOPRIL 5 MG TAB PO SCH (09:21)
[2019-03-20] MEDS: GABAPENTIN 300 MG CAP PO SCH ×3 (09:21→17:00)
[2019-03-20] MEDS: LACTOBACILLUS RHAMNOSUS GG 1 EACH CAP PO SCH (09:21)
[2019-03-20] MEDS: ASPIRIN 81 MG TAB.CHEW PO SCH (09:22)
[2019-03-20] MEDS: metFORMIN 850 MG TAB PO SCH ×2 (09:22→17:00)
--- NOTE | 2019-03-20 09:43 | NUR ---
GAVE AM MEDS. PT CLEANED AND REPOSITIONED. RIGHT FOOT ELEVATED ON PILLOW. WILL CONTINUE TO MONITOR.
--- NOTE | 2019-03-20 11:05 | NUR ---
STARTED IV ON RIGHT HAND 22G, FLUSHES WELL, GOOD BLOOD RETURN. VANCO FINISHING UP. WILL HANG ZOSYN WHEN VANCO DONE.
[2019-03-20 11:11] LABS: ANION GAP 10.1 (8-16); CARBON DIOXIDE 28.5 mmol/L (21-32); CHLORIDE 102 mmol/L (98-107); CREATININE 0.9 mg/dL (0.7-1.3); GLUCOSE 150 mg/dL (74-106); POTASSIUM 3.6 mmol/L (3.5-5.1); SODIUM SERUM 137 mmol/L (136-145); UREA NITROGEN, BLOOD 7 mg/dL (7-18)
[2019-03-20 11:14] LABS: BASOPHILS % (AUTO) 0.5 % (0.0-2.0); EOSINOPHILS # (AUTO) 0.1 K/uL (0-0.4); EOSINOPHILS % (AUTO) 0.8 % (0.0-4.0); HEMOGLOBIN 10.8 g/dL (12.0-18.0); LYMPHOCYTES # (AUTO) 1.8 K/uL (2.0-11.5); LYMPHOCYTES % (AUTO) 20.2 % (20.5-51.1); MEAN CORPUSCULAR HEMOGLOBIN 28 pg (27-31); MEAN CORPUSCULAR HGB CONC 34 g/dL (33-37); MEAN CORPUSCULAR VOLUME 83.3 fL (80-94); MONOCYTES # (AUTO) 0.5 K/uL (0.8-1.0); MONOCYTES % (AUTO) 5.7 % (1.7-9.3); NEUTROPHILS # (AUTO) 6.7 K/uL (1.8-7.7); NEUTROPHILS % (AUTO) 72.8 % (42.2-75.2); PLATELET COUNT (AUTO) 466 K/uL (140-450); RED BLOOD CELL COUNT(AUTO) 3.84 MIL/uL (4.20-6.10); RED CELL DISTRIBUTION WIDTH 13.6 % (11.6-13.7); WHITE BLOOD COUNT (AUTO) 9.1 K/uL (4.8-10.8)
[2019-03-20] MEDS: INSULIN LISPRO SLIDING SCALE 100 UNITS/ML VIAL SUBQ PRN (11:59)
[2019-03-20 12:06] LABS: MAGNESIUM 1.9 mg/dL (1.8-2.4)
[2019-03-20] MEDS: NON ADHERENT DRESSING TP SCH (12:06)
--- NOTE | 2019-03-20 12:09 | NUR ---
CAME TO SEE PATIENT. THEY UNWRAPPED DRESSING ON RIGHT FOOT. PICTURES TAKEN ON UNIT CAMERA. TO BE HERE IN 10 MIN TO DO FULL DRESSING CHANGE. HUNG ZOSYN AND GAVE INSULIN PER MD ORDER. CALLED PHARMACIST D/T MEDICATION DISCONTINUATION ALERT POPPING UP WHEN SCANNING ZOSYN. PHARMACIST SAID TO OVERRIDE AND TO STILL GIVE IT. MD ORDER ZOSYN TO BE GIVEN AT 1400.
--- NOTE | 2019-03-20 14:28 | NUR ---
NOTIFIED ABOUT WOUND CULTURE COMING BACK +MRSA. PLACED PT ON CONTACT PRECAUTIONS, SIGN POSTED OUTSIDE.
[2019-03-20 16:32] VITALS: BP 121/60
--- NOTE | 2019-03-20 17:09 | NUR ---
PT CLEANED AND REPOSITIONED. ERVIN ESPARZA PER MD ORDER. PT EXPERIENCING DIARRHEA, 2 TIMES TODAY. WILL NOTIFY . PT STABLE
--- NOTE | 2019-03-20 19:24 | NUR ---
ENDORSED PT TO MEDICAL FIELD REPRESENTATIVE RN. C.DIF TOXIN TO BE COLLECTED. PT CURRENTLY ON BEDPAN. SPECIMEN CUP AT BEDSIDE. NOTIFIED KURT SANTIAGO TO COLLECT C.DIFF SAMPLE.
--- NOTE | 2019-03-20 20:15 | NUR ---
IV ACCIDENTALLY PULLED OUT BY PATIENT, WILL INSERT A NEW IV LINE.
--- NOTE | 2019-03-20 21:00 | NUR ---
STOOL SPECIMEN FOR C-DIFF COLLECTED AND SENT TO LAB.
[2019-03-20] MEDS: ATORVASTATIN 20 MG TAB PO SCH (21:10)
--- NOTE | 2019-03-20 22:30 | NUR ---
ENDORSED TO YANI HUGHES FOR CONTINUITY OF CARE.
--- NOTE | 2019-03-20 22:30 | NUR ---
RECIEVED PT AAOX4 ,NID , NO IV ACCESS AT THIS TIME -PT ACCIDENTALLY PULLED OUT THE IV CANNULLA - IV CANULLA FOUND IN THE BED - INTACT , PREVOIULY IV SITE - NO ACTIVE BLEEDING NOTED. - FOR RE INSERTION OF IV CANULLA - PLAN OF CARE DISCUSSED AND VERBALIZE UNDERSTANDING , S/P AMPUTATION OF THE RIGHT FOOT - WITH DRESSING DRY AND INTACT , - NO COMPLAIN MADE AT THIS TIME , ON SAFETY PROTOCOL IN PLACE , CALL LIGHT WITHIN REACH . WILL CONT. TO MONITOR.
--- NOTE | 2019-03-20 23:00 | NUR ---
NEW IV CANNULLA RE INSERTED - PROCEDURE TOLERATED WELL - RE HOOK IVF - INFUSING WELL , CALL LIGHT WITHIN REACH , WILL CONT. TO MONITOR
[2019-03-21] VITALS: BP 122/62
--- NOTE | 2019-03-21 | NUR ---
MADE ROUNDS , RESP. EVEN AND UNLABORED , NO COMPLAIN MADE AT THIS TIME. CALL LIGHT WITHIN REACH , WILL CONT. TO MONITOR.
[2019-03-21] MEDS ORDERED: PIPERACILLIN/TAZOBACTAM 3.375 GM VIAL IV ONE (01:10)
[2019-03-21] MEDS ORDERED: PIPERACILLIN/TAZOBACTAM 2.25 GM VIAL IV ONE (01:15)
[2019-03-21] MEDS: PIPERACILLIN/TAZOBACTAM 4.5 GM in DEXTROSE 5% 100 ML IV SCH ×6 (01:16→23:33)
[2019-03-21] MEDS: NACL 0.9% 1,000 ML IV SCH ×2 (01:54→22:08)
--- NOTE | 2019-03-21 02:00 | NUR ---
MADE ROUNDS - NO COMPLAIN MADE AT THIS TIME - VOIDE FREELY THRU URINAL . WILL CONT. TO MONITOR . CALL LIGHT WITHIN REACH.
--- NOTE | 2019-03-21 02:01 | NUR ---
CONTINUE THE ZOSYN 4.5 T[address] - [address] COBURN.
[2019-03-21] MEDS: VANCOMYCIN HCL 750 MG in DEXTROSE 5% 250 ML IV SCH ×3 (05:09→21:16)
[2019-03-21 06:19] LABS: ANION GAP 14.1 (8-16); CARBON DIOXIDE 24.1 mmol/L (21-32); CHLORIDE 102 mmol/L (98-107); CREATININE 0.8 mg/dL (0.7-1.3); GLUCOSE 182 mg/dL (74-106); POTASSIUM 3.2 mmol/L (3.5-5.1); SODIUM SERUM 137 mmol/L (136-145); UREA NITROGEN, BLOOD 7 mg/dL (7-18)
[2019-03-21] MEDS: BLOOD GLUCOSE MONITORING 1 DEV DEV FS SCH ×4 (06:22→20:38)
[2019-03-21] MEDS: INSULIN LISPRO SLIDING SCALE 100 UNITS/ML VIAL SUBQ PRN (06:30)
[2019-03-21 06:34] LABS: MAGNESIUM 1.7 mg/dL (1.8-2.4); PHOSPHORUS 3.6 mg/dL (2.5-4.9)
[2019-03-21 06:46] LABS: BASOPHILS % (AUTO) 0.5 % (0.0-2.0); EOSINOPHILS # (AUTO) 0.1 K/uL (0-0.4); EOSINOPHILS % (AUTO) 1.4 % (0.0-4.0); HEMOGLOBIN 9.9 g/dL (12.0-18.0); LYMPHOCYTES # (AUTO) 1.7 K/uL (2.0-11.5); LYMPHOCYTES % (AUTO) 20.1 % (20.5-51.1); MEAN CORPUSCULAR HEMOGLOBIN 28 pg (27-31); MEAN CORPUSCULAR HGB CONC 34 g/dL (33-37); MEAN CORPUSCULAR VOLUME 82.1 fL (80-94); MONOCYTES # (AUTO) 0.5 K/uL (0.8-1.0); MONOCYTES % (AUTO) 5.8 % (1.7-9.3); NEUTROPHILS % (AUTO) 72.2 % (42.2-75.2); PLATELET COUNT (AUTO) 477 K/uL (140-450); RED BLOOD CELL COUNT(AUTO) 3.54 MIL/uL (4.20-6.10); RED CELL DISTRIBUTION WIDTH 13.9 % (11.6-13.7); WHITE BLOOD COUNT (AUTO) 8.3 K/uL (4.8-10.8)
--- NOTE | 2019-03-21 07:00 | NUR ---
ZOSYN 4.5 GRMS TIV-GIVEN ORDERED -WITH BOTTLE NUMBER CODE [id number] .
--- NOTE | 2019-03-21 07:25 | NUR ---
ENDORSED TO AM SHIFT FOR CONT OF CARE - LAST LBM WATERShauna 1929.
--- NOTE | 2019-03-21 07:27 | NUR ---
RECEIVED REPORT FROM NIGHT RN. PT RESTING IN BED. AAOX4. NO S/S OF ACUTE DISTRESS. PT DENIES PAIN. IV SITE PATENT AND INTACT. DRESSING TO RIGHT FOOT DRY AND INTACT. CALL LIGHT WITHIN REACH. SAFETY MEASURES ENSURED. WILL CONTINUE TO MONITOR .
[2019-03-21 08:00] VITALS: BP 116/50
[2019-03-21] MEDS: metFORMIN 850 MG TAB PO SCH ×2 (08:30→17:42)
[2019-03-21] MEDS: ASPIRIN 81 MG TAB.CHEW PO SCH (08:30)
[2019-03-21] MEDS: LISINOPRIL 5 MG TAB PO SCH (08:31)
[2019-03-21] MEDS: GABAPENTIN 300 MG CAP PO SCH ×3 (08:31→17:42)
[2019-03-21] MEDS: LACTOBACILLUS RHAMNOSUS GG 1 EACH CAP PO SCH (08:31)
[2019-03-21] MEDS ORDERED: MAG SULF 2000 MG/WATER PREMIX 50 ML IV SCH (11:15)
[2019-03-21] MEDS ORDERED: POTASSIUM CHLORIDE 40 MEQ, LIDOCAINE MPF 1% - 5 mL VIAL 25 MG in NACL 0.9% 250 ML IV SCH (11:30)
--- NOTE | 2019-03-21 12:15 | NUR ---
PATIENT SLEEPING IN BED. NO S/S OF ACUTE DISTRESS. CALL LIGHT WITHIN REACH. SAFETY MEASURES ENSURED. WILL CONTINUE TO MONITOR.
[2019-03-21] MEDS: NON ADHERENT DRESSING TP SCH (13:07)
[2019-03-21 16:00] VITALS: BP 132/71
--- NOTE | 2019-03-21 16:04 | NUR ---
PATIENT RESTING NI BED. NO S/S OF ACUTE DISTRESS. PT DENIES PAIN. CALL LIGHT WITHIN REACH. SAFETY MEASURES ENSURED. WILL CONTINUE TO MONITOR.
--- NOTE | 2019-03-21 16:44 | NUR ---
ENDORSED PLAN OF CARE TO FARHANA
--- NOTE | 2019-03-21 17:00 | NUR ---
RECEIVED REPORT FROM MARLY, WILL CONTINUE CARE.
--- NOTE | 2019-03-21 19:25 | NUR ---
RECEIVED BEDSIDE REPORT FROM DAY RN. ON ROOM AIR. RESPIRATIONS ARE EQUAL AND UNLABORED. PT S/P R GREAT TOE AMPUTATIONS ON 03/17/29 DRESSING CHANGE LAST DONE ON 03/20 BY SUPERSONIC ENGINEER. DRESSING IS C/D/I. IV ON L WRIST INFUSING K RIDER. PT ON CONTACT ISOLATION FOR POSSIBLE C-DIFF. PT STATES NORMAL BM DENIES DIARRHEA, STOOL SENT TO LAB ON 03/20. PLAN OF CARE DISCUSSED WITH PT. CALL LIGHT IS WITHIN REACH. WILL CONTINUE TO MONITOR.
[2019-03-21] MEDS: ATORVASTATIN 20 MG TAB PO SCH (21:15)
--- NOTE | 2019-03-21 21:15 | NUR ---
MARIELLA MEDICATIONS GIVEN. VANCO NOW INFUSING PER ORDERS. PEPCID ADMINISTERED C/C HEARTBURN. ALL NEEDS MET AT THIS TIME. CALL LIGHT IS WITHIN REACH. WILL CONTINUE TO MONITOR.
--- NOTE | 2019-03-21 22:00 | NUR ---
PATIENT WAS CLEANED AND REPOSITION FOR COMFORT. ALL NEEDS MET AT THIS TIME. CALL LIGHT IS WITHIN REACH. WILL CONTINUE TO MONITOR.
[2019-03-22] VITALS: BP 135/82
--- NOTE | 2019-03-22 | NUR ---
MARIELLA MEDICATION NOW INFUSING PER ORDERS. VITAL SIGNS ARE WITHIN NORMAL LIMITS. ALL NEEDS MET AT THIS TIME. CALL LIGHT IS WITHIN REACH. WILL CONTINUE TO MONITOR.
--- NOTE | 2019-03-22 01:54 | NUR ---
PATIENT IS SLEEPING COMFORTABLY IN BED. CHEST RISE AND FALL. ALL NEEDS MET AT THIS TIME. CALL LIGHT IS WITHIN REACH.
--- NOTE | 2019-03-22 04:00 | NUR ---
PT IS SLEEPING COMFORTABLY IN BED. CHEST RISE AND FALL. SAFETY MEASURES ARE IN PLACE. WILL CONTINUE TO MONITOR.
[2019-03-22] MEDS: PIPERACILLIN/TAZOBACTAM 4.5 GM in DEXTROSE 5% 100 ML IV SCH ×3 (05:23→17:07)
--- NOTE | 2019-03-22 06:09 | NUR ---
PATIENT BEING CLEAN AND BED CLEANED. ALL NEEDS MET AT THIS TIME. WILL CONTINUE TO MONITOR.
[2019-03-22] MEDS: VANCOMYCIN HCL 750 MG in DEXTROSE 5% 250 ML IV SCH ×3 (06:22→21:00)
[2019-03-22] MEDS: BLOOD GLUCOSE MONITORING 1 DEV DEV FS SCH ×4 (06:30→20:59)
[2019-03-22 06:51] LABS: BASOPHILS % (AUTO) 0.5 % (0.0-2.0); EOSINOPHILS # (AUTO) 0.1 K/uL (0-0.4); EOSINOPHILS % (AUTO) 1.4 % (0.0-4.0); HEMATOCRIT 29.9 % (36-52); HEMOGLOBIN 10.1 g/dL (12.0-18.0); LYMPHOCYTES # (AUTO) 1.7 K/uL (2.0-11.5); LYMPHOCYTES % (AUTO) 20.2 % (20.5-51.1); MEAN CORPUSCULAR HEMOGLOBIN 28 pg (27-31); MEAN CORPUSCULAR HGB CONC 34 g/dL (33-37); MEAN CORPUSCULAR VOLUME 82.6 fL (80-94); MONOCYTES # (AUTO) 0.5 K/uL (0.8-1.0); MONOCYTES % (AUTO) 6.3 % (1.7-9.3); NEUTROPHILS # (AUTO) 6.2 K/uL (1.8-7.7); NEUTROPHILS % (AUTO) 71.6 % (42.2-75.2); PLATELET COUNT (AUTO) 516 K/uL (140-450); RED BLOOD CELL COUNT(AUTO) 3.62 MIL/uL (4.20-6.10); RED CELL DISTRIBUTION WIDTH 13.5 % (11.6-13.7); WHITE BLOOD COUNT (AUTO) 8.6 K/uL (4.8-10.8)
[2019-03-22 07:02] LABS: ANION GAP 13.9 (8-16); CARBON DIOXIDE 22.6 mmol/L (21-32); CHLORIDE 105 mmol/L (98-107); CREATININE 0.9 mg/dL (0.7-1.3); GLUCOSE 122 mg/dL (74-106); POTASSIUM 3.5 mmol/L (3.5-5.1); SODIUM SERUM 138 mmol/L (136-145); UREA NITROGEN, BLOOD 5 mg/dL (7-18)
--- NOTE | 2019-03-22 07:23 | NUR ---
GAVE BEDSIDE REPORT TO DAY RN. PT ENDORSED IN STABLE CONDITION.
--- NOTE | 2019-03-22 07:25 | NUR ---
RECEIVED PT FROM FISHER LAMPARA NET NURSEERIC, PT IS AWAKE AND LYING ON THE BED WITH RT TOES AMPUTATION, COVERED WITH DRESSING, IV LINE ON THE LEFT WRIST G.24 WITH NS INFUSING AT 50ML/HR, INTACT, SIDE RAILS ARE UP AN CALL LIGHT WITHIN REACH, PT IS ON CONTACT ISOLATION FOR MRSA OF WOUND, PT DENIES PAIN AND NO SIGN OF DISTRESS NOTED AND WILL MONITOR PT.
[2019-03-22 07:34] LABS: PHOSPHORUS 3.3 mg/dL (2.5-4.9)
[2019-03-22 08:00] VITALS: BP 143/73
[2019-03-22] MEDS: GABAPENTIN 300 MG CAP PO SCH ×3 (08:34→17:08)
[2019-03-22] MEDS: LISINOPRIL 5 MG TAB PO SCH (08:34)
[2019-03-22] MEDS: LACTOBACILLUS RHAMNOSUS GG 1 EACH CAP PO SCH (08:35)
[2019-03-22] MEDS: ASPIRIN 81 MG TAB.CHEW PO SCH (08:35)
[2019-03-22] MEDS: metFORMIN 850 MG TAB PO SCH ×2 (08:40→17:08)
--- NOTE | 2019-03-22 08:40 | NUR ---
PT IS AWAKE AND PARAMETERS CHECKED, BP IS 140/75, PULSE IS 77, ORAL AND SUBQ MEDICATIONS WERE GIVEN AND PT TOLERATED IT. WILL MONITOR PT.
--- NOTE | 2019-03-22 11:45 | NUR ---
PT IS AWAKE AND BLOOD GLUCOSE CHECK DONE AND IS 112, NO INSULIN COVERAGE NEEDED, IV MEDICATION GIVEN VIA PIGGYBACK AND PT TOLERATED IT. NO SIGN OF DISTRESS NOTED AN WILL MONITOR PT.
--- NOTE | 2019-03-22 12:10 | NUR ---
DRESSING CHANGE ON THE RT FOOT WAS BEING DONE BY TAX INVESTIGATOR NOW ASSISTED BY RN, JUSTIN. WILL MONITOR PT.
[2019-03-22] MEDS: NON ADHERENT DRESSING TP SCH (12:16)
--- NOTE | 2019-03-22 12:17 | NUR ---
PT IS AWAKE AND ORAL MEDICATION WAS GIVEN AND PT TOLERATED IT. WILL MONITOR PT.
--- NOTE | 2019-03-22 14:52 | NUR ---
03/22/19 RD FOLLOW UP COMPLETED PLEASE REFER TO NUTRITION ASSESSMENT UNDER CARE ACTIVITY FOR ESTIMATED NUTRITIONAL NEEDS. 1. CONTINUE CCHO 60 GM 2. RECOMMEND YUNIER BID 3. F/U 3-5 DAYS; MODERATE RISK VAHID CRAWLEY RD
--- NOTE | 2019-03-22 15:22 | NUR ---
PT IS AWAKE AND LYING ON THE BED, IV VANCOMYCIN WAS GIVEN VIA PIGGYBACK, PARAMETER CHECKED. WILL MONITOR PT.
[2019-03-22 16:00] VITALS: BP 128/72
--- NOTE | 2019-03-22 16:47 | NUR ---
I RECEIVED A CALL FROM MARIE SANTANA SPOKE WITH DANIEL , STATED PT CAN GO TO ROOM 13 A , AND ARRANGED TRANSPORT CUSHION MAKER TIME 1400.
--- NOTE | 2019-03-22 17:07 | NUR ---
PT IS AWAKE AND LYING ON THE BED, ORAL AND IVPB MEDICATION WERE GIVEN AND PT TOLERATE DIT. WILL MONITOR PT.
--- NOTE | 2019-03-22 19:00 | NUR ---
ENDORSED PATIENT TO SPINNING OPERATOR NURSE UMESH, WITH CONTINUED OF CARE.
--- NOTE | 2019-03-22 19:01 | NUR ---
Received endorsement from AM shift RN; patient A/Ox4, able to make needs known, [place] speaking, on bedrest s/p right foot amputation. Introduced self, updated board. No SOB or distress noted, on room air. On contact precautions for MRSA wound; observed and maintained. IV site on left wrist, 24 gauge, running IVF at 50mL/hr. Skin non-intact. Bed in the lowest position, call light within reach. Initial assessment done. Will continue to monitor.
[2019-03-22] MEDS: ATORVASTATIN 20 MG TAB PO SCH (20:43)
[2019-03-22] MEDS: NACL 0.9% 1,000 ML IV SCH (20:58)
--- NOTE | 2019-03-22 21:40 | NUR ---
Due meds given, tolerated well.
--- NOTE | 2019-03-22 23:45 | NUR ---
Vitals taken, no distress noted.
[2019-03-23] VITALS: BP 128/69
[2019-03-23] MEDS: PIPERACILLIN/TAZOBACTAM 4.5 GM in DEXTROSE 5% 100 ML IV SCH ×4 (00:13→17:25)
--- NOTE | 2019-03-23 02:10 | NUR ---
Rounds done; no distress noted.
[2019-03-23] MEDS ORDERED: LIDOCAINE VISCOUS 2% 20 ML UDC PO SCH (02:30)
[2019-03-23] MEDS ORDERED: ALUMINUM HYD/MAG/SIMETHICONE 30 ML UDC PO SCH (02:30)
[2019-03-23] MEDS ORDERED: DICYCLOMINE HCL LIQUID 10 MG/5 ML UDC PO SCH (02:30)
--- NOTE | 2019-03-23 04:45 | NUR ---
Checks made; patient asleep, eyes closed, visible chest rise and fall noted.
[2019-03-23] MEDS: VANCOMYCIN HCL 750 MG in DEXTROSE 5% 250 ML IV SCH ×3 (06:07→22:34)
--- NOTE | 2019-03-23 07:14 | NUR ---
Endorsed patient to AM shift RN for continuity of care; patient in stable condition.
--- NOTE | 2019-03-23 07:15 | NUR ---
RECEIVED PT FROM DIRECTOR OF STRATEGIC SOURCING NURSEUMESH, PT IS AWAKE AND LYING ON THE BED WITH SIDE RAILS UP AND CALL LIGHT WITHIN REACH, IV LINE ON THE LEFT FA G.24 WITH NS INFUSING AT 50ML/HR, SAFETY AND FALL PRECAUTION ENFORCED, WITH RT TOES AMPUTATION, COVERED WITH DRESSING, ON CONTACT ISOLATION FOR MRSA OF WOUNDS,PT DENIES PAIN AND NO SIGN OF DISTRESS NOTED. WILL MONITOR PT.
[2019-03-23] MEDS: BLOOD GLUCOSE MONITORING 1 DEV DEV FS SCH ×4 (07:30→20:11)
[2019-03-23 07:51] LABS: BASOPHILS # (AUTO) 0.1 K/uL (0.00-0.22); BASOPHILS % (AUTO) 0.7 % (0.0-2.0); EOSINOPHILS # (AUTO) 0.1 K/uL (0-0.4); EOSINOPHILS % (AUTO) 1.2 % (0.0-4.0); HEMATOCRIT 29.9 % (36-52); HEMOGLOBIN 10.4 g/dL (12.0-18.0); LYMPHOCYTES # (AUTO) 1.5 K/uL (2.0-11.5); MEAN CORPUSCULAR HEMOGLOBIN 29 pg (27-31); MEAN CORPUSCULAR HGB CONC 35 g/dL (33-37); MONOCYTES # (AUTO) 0.5 K/uL (0.8-1.0); MONOCYTES % (AUTO) 6.8 % (1.7-9.3); NEUTROPHILS # (AUTO) 5.8 K/uL (1.8-7.7); NEUTROPHILS % (AUTO) 72.3 % (42.2-75.2); PLATELET COUNT (AUTO) 526 K/uL (140-450); RED BLOOD CELL COUNT(AUTO) 3.64 MIL/uL (4.20-6.10); RED CELL DISTRIBUTION WIDTH 13.7 % (11.6-13.7)
[2019-03-23 08:00] VITALS: BP 148/83
[2019-03-23 08:44] LABS: ANION GAP 14.1 (8-16); CARBON DIOXIDE 23.2 mmol/L (21-32); CHLORIDE 104 mmol/L (98-107); CREATININE 0.9 mg/dL (0.7-1.3); GLUCOSE 115 mg/dL (74-106); POTASSIUM 3.3 mmol/L (3.5-5.1); SODIUM SERUM 138 mmol/L (136-145); UREA NITROGEN, BLOOD 5 mg/dL (7-18)
[2019-03-23] MEDS ORDERED: ATOR20TA40 PO (08:46)
[2019-03-23] MEDS ORDERED: METF850T PO (08:46)
[2019-03-23] MEDS ORDERED: GABA-638 PO (08:46)
[2019-03-23] MEDS ORDERED: LACT10CA PO (08:46)
[2019-03-23] MEDS ORDERED: ASPI81CT95 PO (08:46)
[2019-03-23] MEDS ORDERED: SULF-58 PO ×2 (08:46→13:52)
[2019-03-23] MEDS ORDERED: CLIN300C2 PO (08:46)
[2019-03-23] MEDS ORDERED: LISI-424 PO (08:46)
[2019-03-23 09:04] LABS: PHOSPHORUS 3.2 mg/dL (2.5-4.9)
[2019-03-23] MEDS: LACTOBACILLUS RHAMNOSUS GG 1 EACH CAP PO SCH (09:07)
[2019-03-23] MEDS: ASPIRIN 81 MG TAB.CHEW PO SCH (09:07)
[2019-03-23] MEDS: metFORMIN 850 MG TAB PO SCH ×2 (09:07→16:40)
[2019-03-23] MEDS: LISINOPRIL 5 MG TAB PO SCH (09:08)
[2019-03-23] MEDS: GABAPENTIN 300 MG CAP PO SCH ×3 (09:08→16:40)
--- NOTE | 2019-03-23 09:10 | NUR ---
PT IS AWAKE AND CLEANED AND MADE COMFORTABLE ON THE BED, VITAL SIGNS TAKEN AND IS STABLE, ORAL AND SUBQ MEDICATIONS WERE GIVEN AND PT TOLERATED IT. WILL MONITOR PT, BLOOD GLUCOSE CHECK DONE AND IS 95.
--- NOTE | 2019-03-23 11:59 | NUR ---
PT IS AWAKE AND WAS GIVEN IV ZOSYN NOW, ASSISTED TO THE BATHROOM AND BACK TO BED. WILL MONITOR PT.
[2019-03-23] MEDS: NON ADHERENT DRESSING TP SCH (12:10)
--- NOTE | 2019-03-23 12:10 | NUR ---
OLEG IS JOSELITO BOATENG ORAL MEDICATION WAS GIVEN AND PT TOLERATED IT. WILL MONITOR PT.
[2019-03-23] MEDS ORDERED: POTASSIUM CHLORIDE 10 MEQ TABER PO SCH (13:30)
--- NOTE | 2019-03-23 13:31 | NUR ---
PT IS AWAKE AND POTASSIUM 40MEQ ORAL TABLETS AND IV MEDICATIONS WERE GIVEN TO PT AND TOLERATED IT. WILL MONITOR PT.
--- NOTE | 2019-03-23 13:40 | NUR ---
[facility] CAME TO FIELD INVESTIGATOR PT BUT PT REFUSED TO GO AND SAID THAT HE WANTS TO JUST WANTS TO GO HOME AND TAKE CARE OF HIMSELF, DR. TUCKER AND CHARGE NURSE MIA WERE INFORMED OF THE PT;S REFUSAL TO GO TO [facility].
[2019-03-23] MEDS ORDERED: LISI5TAB18 PO (13:52)
[2019-03-23] MEDS: NACL 0.9% 1,000 ML IV SCH (15:35)
[2019-03-23 16:00] VITALS: BP 130/71
--- NOTE | 2019-03-23 16:38 | NUR ---
PT IS AWAKE AND V/S TAKEN AND IS STABLE, BLOOD GLUCOSE CHECK DONE AND RESULT IS 105, NO INSULIN COVERAGE NEEDED.
--- NOTE | 2019-03-23 16:40 | NUR ---
PT WAS ASSISTED TO THE BATHROOM USING A WALKER, AND THEN BACK TO BED, ORAL MEDICATIONS WERE GIVEN AND PT TOLERATED IT, NO SIGN OF DISTRESS NOTED AND WILL MONITOR PT.
--- NOTE | 2019-03-23 19:33 | NUR ---
ENDORSED PT TO CUSTOMER EXPERIENCE PROFESSIONAL NURSEASH FOR CONTINUITY OF CARE.
--- NOTE | 2019-03-23 19:34 | NUR ---
RECEIVED BEDSIDE REPORT FROM DAY SHIFT NURSE. NO S/S OF SOB NOTED ON ROOM AIR. PT IS AWAKE AND LYING ON THE BED WITH SIDE RAILS UP. IV SITE ON LEFT H, 24G, PATENT, INTACT, AND ASYMPTOMATIC. SAFETY AND FALL PRECAUTION IN PLACE. CONTACT ISOLATION FOR MRSA IN WOUND. BED IN LOW POSITION, CALL LIGHT WITHIN REACH.
--- NOTE | 2019-03-23 20:11 | NUR ---
BS CHECKED, 93, NO INSULIN COVERAGE NEEDED.
[2019-03-23] MEDS: ATORVASTATIN 20 MG TAB PO SCH (21:20)
--- NOTE | 2019-03-23 21:25 | NUR ---
GIVEN LIPITOR AND HEPARIN MD ORDERED. PT TOLERATED WELL.
--- NOTE | 2019-03-23 22:33 | NUR ---
IV PULLED OUT. ATTEMPT 2 TIMES IV START, NOT SUCCESSFUL. CHARGE NURSE, SO STARTED IV ON LEFT HAND, 22G, PATENT, INTACT, AND ASYMPTOMATIC. GIVEN VANCOMYCIN MD ORDERED. PT TOLERATED WELL.
[2019-03-24] VITALS: BP 137/75
[2019-03-24] MEDS: PIPERACILLIN/TAZOBACTAM 4.5 GM in DEXTROSE 5% 100 ML IV SCH ×4 (00:12→17:07)
--- NOTE | 2019-03-24 00:12 | NUR ---
GIVEN ZOSYN MD ORDERED, VS CHECKED, WITHIN PT'S BASELINE. WILL CONTINUE TO MONITOR.
--- NOTE | 2019-03-24 02:45 | NUR ---
PT SLEEPING IN BED. NO ACUTE DISTRESS NOTED.
--- NOTE | 2019-03-24 05:04 | NUR ---
GIVEN ZOSYN MD ORDERED. PT TOLERATED WELL.
[2019-03-24] MEDS: VANCOMYCIN HCL 750 MG in DEXTROSE 5% 250 ML IV SCH ×2 (05:59→13:25)
[2019-03-24] MEDS: BLOOD GLUCOSE MONITORING 1 DEV DEV FS SCH ×3 (05:59→16:26)
--- NOTE | 2019-03-24 05:59 | NUR ---
GIVEN VANCOMYCIN MD ORDERED. BS CHECKED, 89. NO INSULIN COVERAGE NEEDED.
[2019-03-24] MEDS ORDERED: VANCOMYCIN PER PHARMACY MC PRN (06:25)
--- NOTE | 2019-03-24 06:49 | NUR ---
PT SLEEPING IN BED. NO ACUTE DISTRESS NOTED.
[2019-03-24] MEDS: metFORMIN 850 MG TAB PO SCH ×2 (08:05→17:06)
[2019-03-24] MEDS: LISINOPRIL 5 MG TAB PO SCH (08:05)
[2019-03-24] MEDS: GABAPENTIN 300 MG CAP PO SCH ×3 (08:05→17:06)
[2019-03-24] MEDS: LACTOBACILLUS RHAMNOSUS GG 1 EACH CAP PO SCH (08:05)
[2019-03-24] MEDS: ASPIRIN 81 MG TAB.CHEW PO SCH (08:06)
--- NOTE | 2019-03-24 09:30 | NUR ---
PT USING WALKER TO AMBULATE SELF TO BATHROOM. STANDBY ASSIST PROVIDED. WILL CONTINUE TO MONITOR.
[2019-03-24 10:19] VITALS: BP 155/93
[2019-03-24] MEDS: NACL 0.9% 1,000 ML IV SCH (11:35)
[2019-03-24] MEDS: NON ADHERENT DRESSING TP SCH (12:23)
--- NOTE | 2019-03-24 14:57 | NUR ---
[facility] CURRENTLY RUNNING. PT STABLE.
--- NOTE | 2019-03-24 16:22 | NUR ---
Discharge Planning: FRANCIA faxed clinicals to [facility] with planned discharge date of 03/25/2019. FRANCIA left nursing station phone number [phone] on cover sheet. FRANCIA/CM will follow up as needed.
[2019-03-24 16:34] VITALS: BP 135/77
[2019-03-24 18:19] LABS: BASOPHILS # (AUTO) 0.2 K/uL (0.00-0.22); BASOPHILS % (AUTO) 2.7 % (0.0-2.0); EOSINOPHILS # (AUTO) 0.1 K/uL (0-0.4); EOSINOPHILS % (AUTO) 1.5 % (0.0-4.0); HEMATOCRIT 32.3 % (36-52); HEMOGLOBIN 10.8 g/dL (12.0-18.0); LYMPHOCYTES # (AUTO) 1.4 K/uL (2.0-11.5); LYMPHOCYTES % (AUTO) 17.2 % (20.5-51.1); MEAN CORPUSCULAR HEMOGLOBIN 28 pg (27-31); MEAN CORPUSCULAR HGB CONC 34 g/dL (33-37); MONOCYTES # (AUTO) 0.6 K/uL (0.8-1.0); MONOCYTES % (AUTO) 6.9 % (1.7-9.3); NEUTROPHILS # (AUTO) 5.8 K/uL (1.8-7.7); NEUTROPHILS % (AUTO) 71.7 % (42.2-75.2); PLATELET COUNT (AUTO) 641 K/uL (140-450); RED BLOOD CELL COUNT(AUTO) 3.89 MIL/uL (4.20-6.10); RED CELL DISTRIBUTION WIDTH 14.1 % (11.6-13.7); WHITE BLOOD COUNT (AUTO) 8.1 K/uL (4.8-10.8)
[2019-03-24 19:03] LABS: ANION GAP 12.4 (8-16); CARBON DIOXIDE 25.8 mmol/L (21-32); CHLORIDE 103 mmol/L (98-107); GLUCOSE 115 mg/dL (74-106); POTASSIUM 3.2 mmol/L (3.5-5.1); SODIUM SERUM 138 mmol/L (136-145); UREA NITROGEN, BLOOD 6 mg/dL (7-18)
--- NOTE | 2019-03-24 19:14 | NUR ---
ENDORSED PT TO DEVELOPER EVANGELIST RN SULLY. PT STABLE.
--- NOTE | 2019-03-24 19:17 | NUR ---
RECEIVED FROM AM RN IN BED TALKING WITH A MALE VISITOR. NO COMPLAINTS DONE. DRESSING TO RIGHT FOOT INTACT AND NO BLEEDING. CALL LIGHT WITH IN REACH AND CARE PLANS FOR THE NIGHT DISCUSSED WITH HIM. NO COMPLAINTS DONE AT THIS TIME. ENCOURAGED TO USE CALL LIGHT FOR ANY HELP HE MAY NEED.
--- NOTE | 2019-03-24 19:30 | NUR ---
WENT TO PT. ROOM TO SEE HIM AND ADMINISTER MEDICATIONS AND GET BLOOD SUGAR. REFUSED AND VERY UPSET. PT. SAID HE IS GOING HOME AND NO ONE CAN STOP HIM. EXPLAINED HE NEEDS HIS MEDICATION AT THIS TIME. REFUSED. WILL INFORM CHARGE NURSE AND RESIDENT MD.
--- NOTE | 2019-03-24 20:40 | NUR ---
TALKED TO DAUGHTER ON THE PHONE RE: FATHER'S WANTING TO GO HOME AND SIGN AMA . PT. UPSET BECAUSE HE STATED" THEY HAVE BEEN PASSING ME AROUND FROM [facility] TO [facility]. EXPLAINED TO DAUGHTER THAT WE CAN NOT STOP PT. TO GO AMA RT HE IS ALERT, ORIENTED X 4 AND MAKES HIS OWN DECISION. DAUGHTER SAID SHE WILL TALK TO THE FATHER AND CALL ME BACK. INFORMED RESIDENT MARQUISE, CHARGE NURSE AND CONTENT EDITOR ABOUT IT. WILL MONITOR FURTHER.
--- NOTE | 2019-03-24 21:09 | NUR ---
SON TAMIKO KATHLEEN CAME IN HERE TO TALK TO HIS FATHER ABOUT NOT GOING HOME AT THIS TIME AND SIGN AMA. PT. REFUSED TO LISTEN. STATED HE KNOWS THE PROS AND CONS AND THE POSSIBILITY OF INFECTION . "I KNOW AND I WILL JUST GO TO MY OWN DOCTOR" REFUSED TO STAY. RESIDENT MD GAVE ABT PRESCRIPTION FOR PT. " THANK YOU VERY MUCH " PER PT. PT. HAPPY TO LEAVE.
--- NOTE | 2019-03-24 21:15 | NUR ---
PT. WHEELED TO THE FRONT BY TONG AND ACCOMPANIED BY SON TAMIKO. ALL BELONGINGS ACCOUNTED FOR AND NOTHING LEFT BEHIND. PT. EXCITED TO GO HOME. NO FURTHER COMPLAINTS DONE. EXPLAINED PROS AND CONS OF AMA. STILL WANTS TO GO. RESIDENT MD AWARE , CHARGE NURSE AWARE AND ANCIENT ART CURATOR AWARE.
== END 2019-03-24 21:20 | disposition left against medical advice (07) | DRG 853 ==
LOC: MED 18:00 → MTU 22:30
PROVIDERS: ADMIT General Practice; ATTEND General Practice
PROC: 0Y6M0ZB Detachment at Right Foot, Partial 2nd Ray, Open Approach (ICD-10-PCS; 2019-03-17)
PROC: 0Y6M0ZC Detachment at Right Foot, Partial 3rd Ray, Open Approach (ICD-10-PCS; 2019-03-17)
PROC: 0Y6M0ZD Detachment at Right Foot, Partial 4th Ray, Open Approach (ICD-10-PCS; 2019-03-17)
PROC: 0Y6M0ZF Detachment at Right Foot, Partial 5th Ray, Open Approach (ICD-10-PCS; 2019-03-17)
PROC: 0Y6M0Z9 Detachment at Right Foot, Partial 1st Ray, Open Approach (ICD-10-PCS; principal; 2019-03-17 17:00)
DX: A41.9 Sepsis, unspecified organism (principal); I50.43 Acute on chronic combined systolic (congestive) and diastolic (congestive) heart failure; E43 Unspecified severe protein-calorie malnutrition; A48.0 Gas gangrene; E11.52 Type 2 diabetes mellitus with diabetic peripheral angiopathy with gangrene; E87.1 Hypo-osmolality and hyponatremia; L02.611 Cutaneous abscess of right foot; M86.8X8 Other osteomyelitis, other site; E11.65 Type 2 diabetes mellitus with hyperglycemia; I10 Essential (primary) hypertension; L03.031 Cellulitis of right toe; Z60.2 Problems related to living alone; E11.621 Type 2 diabetes mellitus with foot ulcer; L97.519 Non-pressure chronic ulcer of other part of right foot with unspecified severity; E11.40 Type 2 diabetes mellitus with diabetic neuropathy, unspecified; E87.6 Hypokalemia; E83.42 Hypomagnesemia; E66.9 Obesity, unspecified; J43.9 Emphysema, unspecified; D64.9 Anemia, unspecified; I34.0 Nonrheumatic mitral (valve) insufficiency; Z53.21 Procedure and treatment not carried out due to patient leaving prior to being seen by health care provider; B95.62 Methicillin resistant Staphylococcus aureus infection as the cause of diseases classified elsewhere; Z68.30 Body mass index [BMI] 30.0-30.9, adult; Z89.439 Acquired absence of unspecified foot; Z87.891 Personal history of nicotine dependence; Z91.19 Patient's noncompliance with other medical treatment and regimen
CPT/HCPCS: 36415; 71045; 73590; 73630; 80048; 80053; 80202; 80305; 81001; 82040; 82140; 82150; 82948; 83605; 83690; 83735; 83880; 84100; 84439; 84443; 84484; 85025; 85610; 85651; 85730; 86140; 87040; 87070; 87075; 87081; 87086; 87186; 87205; 88305; 88311; 93005; 96365; 97110; 97116; 97161-GP; 97530; 99285; J0330; J0696; J1644; J1815; J1885; J2001; J2405; J2543; J2704; J3010; J3370; J3475; J3480; J3490; J7030; J7042; J7060; Q0092